=== PATIENT | male | born 1985 | race Two or more races ===

== ENCOUNTER 2020-11-23 16:56 | Emergency (ER) | payer OTHER ==
[~2020-11-23] VITALS: Ht 182.9 cm; Wt 149.7 kg
[2020-11-23 17:03] VITALS: BP 169/90
== END 2020-11-23 20:55 | disposition home or self-care (01) ==
LOC: ER 16:56
DX: S46.211A Strain of muscle, fascia and tendon of other parts of biceps, right arm, initial encounter (principal); X50.9XXA Other and unspecified overexertion or strenuous movements or postures, initial encounter; Y93.89 Activity, other specified; Y92.89 Other specified places as the place of occurrence of the external cause; Y99.8 Other external cause status
CPT/HCPCS: 73060; 73080